=== PATIENT | female | born 1935 | race Caucasian/White ===

== ENCOUNTER 2021-08-16 09:34 | Emergency (ER) | payer MEDICARE, SELFPAY ==
--- NOTE | 2021-08-16 09:36 | ED.ABDPAIN ---
HPI - Abdominal Pain General Chief Complaint: Abdominal Pain Stated Complaint: abd pain Time Seen by Provider: 08/16/21 10:12 Source: patient Mode of arrival: ambulatory Limitations: no limitations History of Present Illness HPI narrative: 86-year-old female presents with concern for lower abdominal pain. She reports a history of diverticulitis. She reports pain is 5/10, steady in nature, eased with walking. She denies any exacerbating factors. She reports pain started after she ate popcorn Tuesday night. She denies vomiting, diarrhea, constipation. Reports 2 bowel movements this morning. She denies decreased appetite. She denies fever or body aches. She denies chest pain or back pain. She reports her personal care physician instructed her to come to urgent care before going to the emergency room. MD elicited complaint: abdominal pain Related Data Home Medications Medication Instructions Recorded Confirmed alprazolam 08/16/21 estradiol mg 08/16/21 Allergies Allergy/AdvReac Type Severity Reaction Status Date / Time amlodipine Allergy Severe Dizziness Verified 08/16/21 10:14 lisinopril Allergy Intermediate Cough Verified 08/16/21 10:14 rofecoxib Allergy Mild Other Verified 08/16/21 10:14 Review of Systems Review of Systems: CONSTITUTIONAL: Denies malaise, chills, sweats, or fever. EYES: Denies visual changes, redness, or discharge. ENT: Denies rhinorrhea, congestion, sinus pain, otalgia or sore throat. CARDIOVASCULAR: Denies chest pain, palpitations, or edema. RESPIRATORY: Denies cough or dyspnea. GASTROINTESTINAL: Reports lower abdominal pain. Denies nausea, vomiting, diarrhea, bloody, or mucous stools. GENITOURINARY: Denies dysuria, frequency, urgency or hematuria. SKIN: Denies rash or itching. MUSCULOSKELETAL: Denies back pain or myalgia. All systems reviewed & are unremarkable except as noted in HPI and below PMFSH Comments At time of signature, agree with nursing past medical, surgical, social and family history. There is no relevant family history pertinent to the presenting complaint Exam Narrative: GENERAL: Well-appearing, well-nourished, and in no acute distress. HEAD: Normocephalic, atraumatic. EYES: PERRLA, conjunctivae clear, and EOMI. ENT: Nares clear, turbinates pink, no rhinorrhea or epistaxis. Mucous membranes moist. Oropharynx without edema, erythema, or lesions. Tonsils not enlarged and without exudate. NECK: Supple. No lymphadenopathy CHEST: Speaks in full sentences. No respiratory distress. HEART: Regular rate and rhythm. ABDOMEN: Soft, flat, nondistended. Mild left lower quadrant tenderness. No guarding, rebound tenderness, or rigid. No pulsatilla masses. Bowel sounds present in all four quadrants. No organomegaly. Negative Fry?s sign. No periumbilical tenderness. No Supra public tenderness or distension. Good femoral pulses bilaterally. No hernia noted. No scars or surface trauma. SKIN: Warm, dry, no rash. NEURO: Alert and oriented x3. PSYCH: Normal mood and affect Course Course Emergency Course: Discussed with patient limited diagnostic capability express care for abdominal pain. Discussed options for transfer to emergency department for further evaluation of symptoms or definitive diagnosis versus presumptively treating for diverticulitis pending follow-up with patient's primary care doctor tomorrow. Patient prefers to presumptively treat for diverticulitis and understands reasons to go to the emergency room if symptoms worsen or do not improve. Patient is aware of diagnosis, understands and agrees to treatment plan. Anticipatory guidance given. Patient agrees to follow-up as directed and is aware of reasons to seek care at the emergency department. Portions of this record may have been created with voice recognition software Level of Care: Express Care Visit Vital Signs Vital signs: Reviewed. MDM - Abdominal Pain MDM Narrative Medical decision making narrative: No evidence of pancreatit
[2021-08-16 09:45] VITALS: BP 198/69; PULSE 77; RESP 16; TEMP 37.1; O2SAT 99
[2021-08-16 10:15] VITALS: BP 160/80
== END 2021-08-16 10:40 | disposition home or self-care (01) ==
PROVIDERS: Emergency Provider Nurse Practitioner
DX: R10.32 Left lower quadrant pain (principal); Z87.19 Personal history of other diseases of the digestive system; F41.9 Anxiety disorder, unspecified
CPT/HCPCS: 81003; 99213; G0463

== ENCOUNTER 2021-10-19 09:27 | Emergency (ER) | payer MEDICARE, SELFPAY ==
--- NOTE | 2021-10-19 09:39 | ED.EAR ---
HPI - Ear Problem General Chief complaint: Ear Stated complaint: Ear Pain Time Seen by Provider: 10/19/21 09:40 Source: patient, RN notes reviewed and old records reviewed Mode of arrival: ambulatory Limitations: no limitations History of Present Illness HPI Narrative: 86-year-old female presents to the [facility] with complaints of right ear discomfort. Patient reports has been going on a long time however the last 2 days it is increased. Has been using sweet oil for comfort. No other treatment prior to arrival. Patient is concerned is either her TMJ or has an ear infection. 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 MD Complaint: ear pain (right ) Related Data Home Medications Medication Instructions Recorded Confirmed alprazolam 0.5 mg PO DAILY 08/16/21 10/19/21 aspirin 81 mg PO DAILY 08/16/21 10/19/21 carboxymethylcellulose sodium 1 drp EACH EYE TID 08/16/21 10/19/21 cholecalciferol (vitamin D3) 25 mcg PO DAILY 08/16/21 10/19/21 [Vitamin D3] coenzyme Q10 200 mg PO DAILY 08/16/21 10/19/21 cranberry 400 mg PO DAILY 08/16/21 10/19/21 estradiol 0.5 mg PO DAILY 08/16/21 10/19/21 lutein 20 mg PO DAILY 08/16/21 10/19/21 magnesium 1 tablet PO DAILY 08/16/21 10/19/21 [id number]-epa-fish 1 tablet PO DAILY 08/16/21 10/19/21 [Adult Multi plus Popejoy-3] omeprazole 20 mg PO DAILY 08/16/21 10/19/21 sennosides 8.6 mg PO DAILY 08/16/21 10/19/21 triamterene-hydrochlorothiazid 1 cap PO DAILY 08/16/21 10/19/21 turmeric 400 mg PO DAILY 08/16/21 10/19/21 Allergies Allergy/AdvReac Type Severity Reaction Status Date / Time amlodipine Allergy Severe Dizziness Verified 10/19/21 09:40 lisinopril Allergy Intermediate Cough Verified 10/19/21 09:40 rofecoxib Allergy Mild Other Verified 10/19/21 09:40 Review of Systems Review of Systems: All systems reviewed & are unremarkable except as noted in HPI and below Constitutional: Constitutional: Reports no additional constitutional complaints, Denies chills and Denies fever(s) Eyes: Eyes: Reports no additional eye complaints ENT: Reports as per HPI, Denies change in voice, Denies dental pain, Denies vertigo, Denies dizziness and Denies throat swelling Comments: Ear pain, right Cardiovascular: Cardiovascular: Reports no additional cardiovascular complaints, Denies chest pain and Denies dyspnea Respiratory: Respiratory: Reports no additional respiratory complaints, Denies cough and Denies dyspnea Gastrointestinal: Gastrointestinal: Reports no additional gastrointestinal complaints, Denies abdominal pain, Denies nausea and Denies vomiting Musculoskeletal: Musculoskeletal: Reports no additional musculoskeletal complaints Integumentary/Breasts: Skin/Breast: Reports system reviewed and no additional complaints, except as docu Neurologic: Reports system reviewed and no additional complaints, except as documented, Denies vertigo and Denies dizziness Psychiatric: Psychiatric: Reports no additional psychiatric complaints Allergic/Immunologic: Allergic/Immunologic: Reports no additional allergic/immunologic complaints and Denies throat swelling PMFSH Comments At the time of my signature, I reviewed and agree with the nursing past medical, surgical, social, and family history. There is no relevant family history pertinent to the patient complaint. Exam Const: General: healthy appearing, no acute distress and alert Nutritional Appearance: well nourished Orientation/consciousness: patient oriented x3 Limitations: no limitations HENMT: Head: normal to inspection Ears: external ears normal, TM's normal bilaterally and EAC's normal General nose exam: Normal external nose present and Normal nasal mucous membranes and turbinates present Face and sinus: normal facial exam and face symmetric Mouth: Yes Normal oral and palatal mucosa present Throat: posterior oropharynx normal, tonsils normal and uvula midline Eyes: Conjunctivae: conjunctivae normal Pupils: E
[2021-10-19 09:43] VITALS: BP 146/72; PULSE 70; RESP 16; TEMP 36.9; O2SAT 98
[2021-10-19 09:45] VITALS: BP 146/72; PULSE 70; RESP 16; TEMP 36.9; O2SAT 98
== END 2021-10-19 09:55 | disposition home or self-care (01) ==
PROVIDERS: Emergency Provider Nurse Practitioner
DX: H92.01 Otalgia, right ear (principal); I10 Essential (primary) hypertension; K21.9 Gastro-esophageal reflux disease without esophagitis; F41.9 Anxiety disorder, unspecified
CPT/HCPCS: 99211; G0463

== ENCOUNTER 2022-09-06 23:09 | Emergency (ER) | payer MEDICARE, SELFPAY ==
[2022-09-06 23:13] VITALS: BP 176/67; PULSE 70; RESP 14; TEMP 36.2; O2SAT 97
[2022-09-07] VITALS (11 sets, daily range): BP systolic 163–208; BP diastolic 56–81; PULSE 58–75; RESP 11–21; O2SAT 98
--- NOTE | 2022-09-07 04:58 | ED.GENADULT ---
HPI - General Adult General Chief complaint: Recheck/Abnormal Lab/Rx Stated complaint: HTN Time Seen by Provider: 09/07/22 03:15 History of Present Illness HPI narrative: This is an 87-year-old female presenting ED with a chief complaint of high blood pressure. Patient noted that she had a headache earlier today. She then started taking her blood pressure medications in attempt to cure her headache. Patient has multiple hypertensive medications and has been given hydralazine to be taken p.r.n. if her blood pressure is ever above 180. Patient notes that after she takes hydralazine her blood pressure drops but then frequently climbs higher than before. The patient called her primary care physician who was unavailable so she was told to come to emergency room for evaluation. The patient has recently had her carvedilol switched to metoprolol. The patient feels that is not working as well. She has had blood pressure readings as high as into the 200s. During these regions she does not have chest pain, difficulty breathing, altered mental status or numbness tingling or weakness. She does have significant anxiety about her blood pressure. Patient is requesting that I change her blood pressure medication. Related Data Home Medications Medication Instructions Recorded Confirmed alprazolam 0.5 mg tablet 0.5 mg PO DAILY 08/16/21 10/19/21 aspirin 81 mg tablet,delayed 81 mg PO DAILY 08/16/21 10/19/21 release carboxymethylcellulose sodium 1 % 1 drp EACH EYE TID 08/16/21 10/19/21 eye drops cholecalciferol (vitamin D3) 25 25 mcg PO DAILY 08/16/21 10/19/21 mcg (1,000 unit) tablet (Vitamin D3) coenzyme Q10 200 mg capsule 200 mg PO DAILY 08/16/21 10/19/21 cranberry 400 mg capsule 400 mg PO DAILY 08/16/21 10/19/21 estradiol 0.5 mg tablet 0.5 mg PO DAILY 08/16/21 10/19/21 lutein 20 mg capsule 20 mg PO DAILY 08/16/21 10/19/21 magnesium 1 tablet PO DAILY 08/16/21 10/19/21 [id number]-[id number]-miy-epa-fish 1 tablet PO DAILY 08/16/21 10/19/21 oil 200 mcg-1,000 unit-25 mg tab,chew omeprazole 20 mg capsule,delayed 20 mg PO DAILY 08/16/21 10/19/21 release sennosides 8.6 mg capsule 8.6 mg PO DAILY 08/16/21 10/19/21 triamterene 37.5 1 cap PO DAILY 08/16/21 10/19/21 mg-hydrochlorothiazide 25 mg capsule turmeric 400 mg capsule 400 mg PO DAILY 08/16/21 10/19/21 Allergies Allergy/AdvReac Type Severity Reaction Status Date / Time amlodipine Allergy Severe Dizziness Verified 10/19/21 09:40 lisinopril Allergy Intermediate Cough Verified 10/19/21 09:40 rofecoxib Allergy Mild Other Verified 10/19/21 09:40 [facility] Past Medical History Medical History Anxiety Hypertension Social History Social History (Updated 09/07/22 @ 05:00 by Rambo Rhodes MD) Social History: Denies use of drugs alcohol or tobacco. Exam Narrative: APPEARANCE: No apparent distress. Head: atraumatic. EYES: EOMI, NOSE: Atraumatic NECK: Trachea midline RESPIRATORY: No increased rate of breathing, clear to auscultation bilaterally CARDIOVASCULAR: RRR, equal pulses in all extremities ABDOMINAL: Non-distended, soft no guarding or rebound MUSCULOSKELETAl: No obvious deformities NEURO: Alert. Cranial nerves 2-12 grossly intact. Sensation light touch, motor function cerebellar function intact for 4 extremities. Gait exam was normal. SKIN:: Warm, dry. Normal color PSYCHIATRIC: Normal affect Course Vital Signs Vital signs: Vital Signs Temperature 97.2 F L 09/06/22 23:13 Pulse Rate 70 09/06/22 23:13 Respiratory Rate 14 09/06/22 23:13 Blood Pressure 176/67 H 09/06/22 23:13 Pulse Oximetry 97 09/06/22 23:13 Oxygen Delivery Room Air 09/06/22 23:13 Temperature 97.2 F L 09/06/22 23:13 Pulse Rate 70 09/07/22 01:25 Respiratory Rate 18 09/07/22 01:25 Blood Pressure 177/63 H 09/07/22 01:25 Pulse Oximetry 98 09/07/22 01:25 Oxygen Delivery Room Air 09/06/22 23:13
== END 2022-09-07 05:23 | disposition home or self-care (01) ==
PROVIDERS: Emergency Provider Emergency Medicine
DX: I10 Essential (primary) hypertension (principal); F41.9 Anxiety disorder, unspecified; Z79.82 Long term (current) use of aspirin
CPT/HCPCS: 99281

== ENCOUNTER 2023-06-16 13:35 | Emergency (ER) | payer MEDICARE, SELFPAY ==
--- NOTE | ~2023-06-16 | XR_ITS ---
EXAMINATION: XR hip LT 2V w AP pelvis DATE: 06/16/2023 14:16 INDICATION: Left hip pain. TECHNIQUE: An anteroposterior view of the pelvis and 2 views of left hip were obtained. COMPARISON: None. 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 There is chronic height loss of L4 ve rtebral body. There are nondisplaced insufficiency fractures of left superior and inferior pubic rami . There is mild osteoarthritis of the hips. IMPRESSION: 1. Nondisplaced insufficiency fractures of left superior and inferior pubic rami. Reviewed, dictated and finalized at location A. [facility] SURGEON IMPRESSION: 1. Nondisplaced insufficiency fractures of left superior and inferior pubic gerri i.
[2023-06-16 13:46] VITALS: BP 144/118; PULSE 72; RESP 18; TEMP 36.6; O2SAT 96
[2023-06-16 14:02] VITALS: BP 131/54; PULSE 89
--- NOTE | 2023-06-16 14:07 | ED.LOWEXIN ---
HPI - Extremity Injury (Lower) General Chief Complaint: Extremity Injury, Lower Stated Complaint: Left Leg Pain Time Seen by Provider: 06/16/23 13:50 Source: patient Mode of arrival: ambulatory Limitations: no limitations History of Present Illness HPI Narrative: Isela is an 88-year-old female patient presenting to the clinic today with complaints of left hip and leg pain. She reports that as the symptoms have been going on for 3 weeks. States that she had a MRI of her lumbar spine 3 weeks ago and felt as though she may have strained her left hip when moving on the MRI table. MRI was completed on 05/25/23. Is having pain in the groin area radiating down her leg. Related Data Home Medications Medication Instructions Recorded Confirmed alprazolam 0.5 mg tablet 0.5 mg PO DAILY 08/16/21 10/19/21 carboxymethylcellulose sodium 1 % 1 drp EACH EYE TID 08/16/21 10/19/21 eye drops cholecalciferol (vitamin D3) 25 25 mcg PO DAILY 08/16/21 10/19/21 mcg (1,000 unit) tablet (Vitamin D3) [id number]-cjd-epa-fish 1 tablet PO DAILY 08/16/21 10/19/21 oil 200 mcg-1,000 unit-25 mg tab,chew Allergies Allergy/AdvReac Type Severity Reaction Status Date / Time amlodipine Allergy Severe Dizziness Verified 06/16/23 13:49 lisinopril Allergy Intermediate Cough Verified 06/16/23 13:49 rofecoxib Allergy Mild Other Verified 06/16/23 13:49 Review of Systems Review of Systems: Pertinent positives per HPI. Patient denies any fever, chills, rash, headache, visual changes, dizziness, cough, runny nose, sore throat, shortness of breath, chest pain, palpitations, nausea, vomiting, diarrhea, constipation, abdominal pain, or any urinary issues. [facility] Past Medical History Medical History Anxiety Hypertension Social History Social History Social History: Denies use of drugs alcohol or tobacco. Comments At the time of my signature, I reviewed and agree with the nursing past medical, surgical, social, and family history. There is no relevant family history pertinent to the patient complaint. Exam Narrative: General: Well-developed, well nourished, in no apparent distress Head: Normocephalic, atraumatic. Cardio: Regular rate and rhythm, s1 and s2 normal, no murmur appreciated. Resp: Clear to auscultation bilaterally, no rhonchi, rales, wheezing or rubs. Musculoskeletal: No deformity, tender to palpation over the left groin, no pain over the posterior hip or lateral hip, pain with flexion of the hip over the left groin, grossly normal range of motion, muscle strength strong and equal, peripheral pulse strong, no edema, no cyanosis, walking with a wheeled walker. Course Course Emergency Course: Portions of this record may have been created with voice recognition software. Level of Care: Express Care Visit Vital Signs Vital signs: Vital Signs Temperature 36.6 C 06/16/23 13:46 Pulse Rate 72 06/16/23 13:46 Respiratory Rate 18 06/16/23 13:46 Blood Pressure 144/118 H 06/16/23 13:46 Pulse Oximetry 96 06/16/23 13:46 Oxygen Delivery Room Air 06/16/23 13:46 Temperature 36.6 C 06/16/23 13:46 Pulse Rate 89 06/16/23 14:02 Respiratory Rate 18 06/16/23 13:46 Blood Pressure 131/54 L 06/16/23 14:02 Pulse Oximetry 96 06/16/23 13:46 Oxygen Delivery Room Air 06/16/23 13:46 Vital signs reviewed MDM - Extremity Injury (Lower) MDM Narrative Medical decision making narrative: At the time of visit patient is resting comfortably on the exam table. X-ray of the left hip and pelvis was performed. X-ray shows a nondisplaced insufficiency fractures of left superior and inferior pubic rami. Differential Diagnosis Differential diagnosis: Likely other (Left hip fracture, left groin strain, left hip bursitis, acute left hip pain) Imaging Data Radiologist's impression: ITS
== END 2023-06-16 14:38 | disposition home or self-care (01) ==
PROVIDERS: Emergency Provider Nurse Practitioner Family
DX: S32.512A Fracture of superior rim of left pubis, initial encounter for closed fracture (principal); S32.592A Other specified fracture of left pubis, initial encounter for closed fracture; I10 Essential (primary) hypertension; X58.XXXA Exposure to other specified factors, initial encounter
CPT/HCPCS: 73502; 99213; G0463

== ENCOUNTER 2023-07-03 13:50 | Emergency (ER) | payer MEDICARE, SELFPAY ==
--- NOTE | 2023-07-03 14:00 | ED.FEMALEGU ---
HPI - Female Genitourinary General Chief complaint: Urogenital-Female Stated complaint: vaginal issue Time Seen by Provider: 07/03/23 13:58 Source: patient Mode of arrival: ambulatory Limitations: no limitations History of Present Illness HPI Narrative: Isela is a 88-year-old female patient presenting to the clinic today with complaints of vaginal itching and irritation. She reports that this has been going on for the past few days. No recent antibiotic use and she denies being diabetic however she has been doing a lot of sitting because she has a pelvic fracture. Denies any urinary symptoms, vaginal discharge, or foul odor of the vagina Related Data Home Medications Medication Instructions Recorded Confirmed alprazolam 0.5 mg tablet 0.5 mg PO DAILY 08/16/21 10/19/21 carboxymethylcellulose sodium 1 % 1 drp EACH EYE TID 08/16/21 10/19/21 eye drops cholecalciferol (vitamin D3) 25 25 mcg PO DAILY 08/16/21 10/19/21 mcg (1,000 unit) tablet (Vitamin D3) [id number]-JM-[id number]-zzn-epa-fish 1 tablet PO DAILY 08/16/21 10/19/21 oil 200 mcg-1,000 unit-25 mg tab,chew Allergies Allergy/AdvReac Type Severity Reaction Status Date / Time amlodipine Allergy Severe Dizziness Verified 06/16/23 13:49 lisinopril Allergy Intermediate Cough Verified 06/16/23 13:49 rofecoxib Allergy Mild Other Verified 06/16/23 13:49 Review of Systems Review of Systems: Pertinent positives per HPI. Patient denies any fever, chills, rash, headache, visual changes, dizziness, cough, runny nose, sore throat, shortness of breath, chest pain, palpitations, nausea, vomiting, diarrhea, constipation, abdominal pain, or any urinary issues. [facility] Past Medical History Medical History Anxiety Hypertension Social History Social History Social History: Denies use of drugs alcohol or tobacco. Comments At the time of my signature, I reviewed and agree with the nursing past medical, surgical, social, and family history. There is no relevant family history pertinent to the patient complaint. Exam Narrative: General: Well-developed, well nourished, in no apparent distress. Head: Normocephalic, atraumatic. Cardio: Regular rate and rhythm, s1 and s2 normal, no murmur appreciated. Resp: Clear to auscultation bilaterally, no rhonchi, rales, wheezing or rubs. Abdomen: Soft, pliable, bowel sounds present in all quadrants, non-tender to palpation, no organomegly, no CVAT tenderness. : Deferred Course Course Emergency Course: Portions of this record may have been created with voice recognition software. Level of Care: Express Care Visit Vital Signs Vital signs: Vital Signs Temperature 36.3 C L 07/03/23 14:16 Pulse Rate 50 L 07/03/23 14:16 Respiratory Rate 14 07/03/23 14:16 Blood Pressure 151/57 H 07/03/23 14:16 Pulse Oximetry 100 07/03/23 14:16 Oxygen Delivery Room Air 07/03/23 14:16 Temperature 36.3 C L 07/03/23 14:16 Pulse Rate 50 L 07/03/23 14:16 Respiratory Rate 14 07/03/23 14:16 Blood Pressure 151/57 H 07/03/23 14:16 Pulse Oximetry 100 07/03/23 14:16 Oxygen Delivery Room Air 07/03/23 14:16 Vital signs reviewed MDM - Female Genitourinary MDM Narrative Medical decision making narrative: At the time of visit patient is resting comfortably on the exam table. Patient appears to be nontoxic. UA was performed and was negative for any sign of infection or blood. I suspect patient may have a vaginal yeast infection. Prescription for Diflucan was sent to the pharmacy. Supportive measures were discussed with the patient and they voiced understanding discharge instructions and agrees to treatment plan. Return precautions reviewed Differential Diagnosis Differential diagnosis: Likely urinary tract infection, bacterial vaginosis, vaginitis, cystitis and other (Vaginal yeast infect
[2023-07-03 14:16] VITALS: BP 151/57; PULSE 50; RESP 14; TEMP 36.3; O2SAT 100
== END 2023-07-03 14:50 | disposition home or self-care (01) ==
PROVIDERS: Emergency Provider Nurse Practitioner Family
DX: B37.31 Acute candidiasis of vulva and vagina (principal); I10 Essential (primary) hypertension; F41.9 Anxiety disorder, unspecified
CPT/HCPCS: 81003; 99213; G0463

== ENCOUNTER 2023-09-07 13:49 | Emergency (ER) | payer MEDICARE, SELFPAY ==
--- NOTE | ~2023-09-07 | XR_ITS ---
EXAMINATION: XR pelvis 1-2V INDICATION: History of pelvic fracture TECHNIQUE: AP view the pelvis is obtained. COMPARISON: 06/16/2023 FINDINGS: There are nondisplaced, healing insufficiency fractures of the left superior and inferior p ubic rami. No new fracture is identified. The femoral heads are well-seated in their acetabula. There is severe lower lumbar spondylosis. IMPRESSION: 1. Nondisplaced healing insufficiency fractures of the left superior and inferior pubic rami. Reviewed, dictated and finalized at location B. CLE REPAIRMAN IMPRESSION: 1. Nondisplaced healing insufficiency fractures of the left superior and inferi or pubic rami.
[2023-09-07 14:12] VITALS: BP 132/54; PULSE 60; RESP 20; TEMP 36.4; O2SAT 97
--- NOTE | 2023-09-07 14:14 | ED.LOWEXIN ---
HPI - Extremity Injury (Lower) General Chief Complaint: Extremity Problem,Nontraumatic Stated Complaint: Lower Body Concern Time Seen by Provider: 09/07/23 14:14 Source: patient Mode of arrival: ambulatory Limitations: no limitations History of Present Illness HPI Narrative: 88-year-old female presents stating she would like a repeat x-ray of her pelvis to see if fractures are healing. Patient states that she had x-ray completed here June 13 that showed stress fractures to pelvis. Since then has been having her son drive her around due to pain. Patient states that her son is going out of town for the next 3 weeks and wants to see if she can start driving herself. Wants to see if fractures are healing . Patient was given follow-up with system specialist at last visit here but states she did not follow-up. States that her son is a distilling department supervisor and told her that nothing could be done for the types of fractures that she had and that she did not need follow-up. Patient has also not seen her primary care physician for pelvic fractures. Patient ambulatory with walker. All systems reviewed and negative except as noted above. Related Data Home Medications Medication Instructions Recorded Confirmed alprazolam 0.5 mg tablet 0.5 mg PO DAILY 08/16/21 09/07/23 carboxymethylcellulose sodium 1 % 1 drp EACH EYE TID 08/16/21 09/07/23 eye drops cholecalciferol (vitamin D3) 25 25 mcg PO DAILY 08/16/21 09/07/23 mcg (1,000 unit) tablet (Vitamin D3) [id number]-EH-[id number]-uyc-epa-fish 1 tablet PO DAILY 08/16/21 09/07/23 oil 200 mcg-1,000 unit-25 mg tab,chew Allergies Allergy/AdvReac Type Severity Reaction Status Date / Time amlodipine Allergy Severe Dizziness Verified 09/07/23 14:01 lisinopril Allergy Intermediate Cough Verified 09/07/23 14:01 rofecoxib Allergy Mild Other Verified 09/07/23 14:01 Review of Systems Review of Systems: CONSTITUTIONAL: Denies fever, chills, or sweats. EYES: Denies visual changes, redness, or discharge. ENT: Denies rhinorrhea, congestion, sore throat, or otalgia. CARDIOVASCULAR: Denies chest pain, palpitations, or edema. RESPIRATORY: Denies cough or dyspnea. GASTROINTESTINAL: Denies abdominal pain, nausea, vomiting, or diarrhea. GENITOURINARY: Denies dysuria or hematuria. SKIN: Denies rash or itching. MUSCULOSKELETAL: Denies back pain, joint pain, or myalgia. NEUROLOGIC: Denies headache, numbness, or weakness. PSYCHIATRIC: Denies anxiety or depression. All other systems reviewed are negative, except as documented in HPI. PMFSH Past Medical History Medical History Anxiety Hypertension Social History Social History Social History: Denies use of drugs alcohol or tobacco. Comments At time of signature, agree with nursing past medical, surgical, social and family history. There is no relevant family history pertinent to the presenting complaint. Exam Narrative: GENERAL: This is a well-nourished, well-developed patient, in no apparent distress. HEAD: normocephalic, atraumatic. EYES: PERRL. Sclera clear/white. Vision is grossly intact. EARS: External ears normal NOSE: External nose normal . NECK: Neck supple, non-tender without lymphadenopathy, masses or thyromegaly. CARDIOVASCULAR: Regular rate and rhythm without murmurs, gallops, or rubs. RESPIRATORY: Clear to auscultation. Breath sounds equal bilaterally. No wheezes, rales, or rhonchi. SKIN: warm, Dry, intact with no suspicious lesions or rash, good texture and turgor. NEURO: awake, alert, and oriented to person, place and time. There were no obvious focal neurologic abnormalities. EXTREMITIES: No joint tenderness, effusion, or edema noted. Course Course Level of Care: Express Care Visit Vital Signs Vital signs: Vital Signs Temperature 36.4 C L 09/07/23 14:12 Pulse Rate 60
== END 2023-09-07 15:15 | disposition home or self-care (01) ==
PROVIDERS: Emergency Provider Nurse Practitioner Family
DX: S32.512D Fracture of superior rim of left pubis, subsequent encounter for fracture with routine healing (principal); S32.592D Other specified fracture of left pubis, subsequent encounter for fracture with routine healing; X58.XXXD Exposure to other specified factors, subsequent encounter; F41.9 Anxiety disorder, unspecified; I10 Essential (primary) hypertension
CPT/HCPCS: 72170; 99213; G0463

== ENCOUNTER 2023-09-25 11:52 | Emergency (ER) | payer MEDICARE, SELFPAY ==
[2023-09-25 12:09] VITALS: BP 134/72; PULSE 67; RESP 16; TEMP 37.4; O2SAT 98
[2023-09-25 12:30] LABS: Glucose Point of Care 109 mg/dl (65-105)
--- NOTE | 2023-09-25 13:17 | ED.GENADULT ---
HPI - General Adult General Chief complaint: Urogenital-Female Stated complaint: yeast infection Source: patient Mode of arrival: ambulatory Limitations: no limitations History of Present Illness HPI narrative: Patient presents for evaluation of which she believes to be a yeast infection. She indicates over the course of the last month she has had brown vaginal discharge and intermittent pelvic pain. She indicates she saw her OBGYN who obtained a vaginal swab and told her that she had vaginal candidiasis. She was treated with oral Diflucan and it sounds like that dose was repeated 72 hours later. She continued to have symptoms and states that the nurse practitioner and her OBGYNs office repeated the treatment of Diflucan with another dose 72 hours later. her symptoms remain unchanged. She denies any urinary symptoms other than some vaginal irritation. She states that that is chronic. She was advised by women's health provider about 10 years ago to apply Crisco to her labia. She has done this for many years. She denies any fever, chills, nausea, or vomiting. She has some chronic low back pain and states that pain management administered a steroid injection for her symptoms. Surgical history positive for total hysterectomy per her reports. Related Data Home Medications Medication Instructions Recorded Confirmed alprazolam 0.5 mg tablet 0.5 mg PO DAILY 08/16/21 09/25/23 carboxymethylcellulose sodium 1 % 1 drp EACH EYE TID 08/16/21 09/25/23 eye drops cholecalciferol (vitamin D3) 25 25 mcg PO DAILY 08/16/21 09/25/23 mcg (1,000 unit) tablet (Vitamin D3) [id number]-epa-fish 1 tablet PO DAILY 08/16/21 09/25/23 oil 200 mcg-1,000 unit-25 mg tab,chew Allergies Allergy/AdvReac Type Severity Reaction Status Date / Time amlodipine Allergy Severe Dizziness Verified 09/25/23 11:55 lisinopril Allergy Intermediate Cough Verified 09/25/23 11:55 rofecoxib Allergy Mild Other Verified 09/25/23 11:55 Review of Systems Review of Systems: CONSTITUTIONAL: Denies fever, chills, or sweats. EYES: Denies visual changes, redness, or discharge. ENT: Denies rhinorrhea, congestion, sore throat, or otalgia. CARDIOVASCULAR: Denies chest pain, palpitations, or edema. RESPIRATORY: Denies cough or dyspnea. GASTROINTESTINAL: Denies abdominal pain, nausea, vomiting, or diarrhea. GENITOURINARY: Reports brown vaginal discharge and vaginal irritation. Reports pelvic pain. Denies other urinary symptoms. Denies vaginal bleeding. SKIN: Denies rash or itching. MUSCULOSKELETAL: Denies back pain, joint pain, or myalgia. NEUROLOGIC: Denies headache, numbness, dizziness, or weakness. PSYCHIATRIC: Denies anxiety or depression. [facility] Past Medical History Medical History Anxiety GERD (gastroesophageal reflux disease) Hypertension Surgical History Surgical History History of hysterectomy History of shoulder surgery Family History Family History Mother Family history non-contributory Social History Social History Social History: Denies use of drugs alcohol or tobacco. Substance use: never Gender identity (if verbalized by the patient): Female Spiritual care concerns: No Exam Narrative: GENERAL: Well-appearing, well-nourished, and in no acute distress. HEAD: Normocephalic, atraumatic. EYES: PERRLA and EOMI. ENT: Nares clear, no rhinorrhea or epistaxis. Mucous membranes moist. Oropharynx without tonsillar hypertrophy exudate or other lesions. Bilateral TMs pearly valencia nonbulging NECK: Supple. No adenopathy or masses. No carotid bruits or JVD CHEST: Clear to auscultation. No respiratory distress. No wheezes rales or rhonchi HEART: Regular rate and rhythm. No murm
== END 2023-09-25 13:15 | disposition short-term general hospital (02) ==
PROVIDERS: Emergency Provider Nurse Practitioner
DX: N89.8 Other specified noninflammatory disorders of vagina (principal); R10.2 Pelvic and perineal pain; R73.9 Hyperglycemia, unspecified; I10 Essential (primary) hypertension; K21.9 Gastro-esophageal reflux disease without esophagitis; F41.9 Anxiety disorder, unspecified
CPT/HCPCS: 82948; 99212; G0463

== ENCOUNTER 2023-09-25 13:38 | Emergency (ER) | payer MEDICARE, SELFPAY ==
--- NOTE | ~2023-09-25 | CT_ITS ---
EXAMINATION: CT abdomen pelvis w con DATE: 09/25/2023 15:24 INDICATION: Pelvic pain TECHNIQUE: Computed tomography (CT) of the abdomen and pelvis was performed with 100 mL Omnipaque-350 intravenous contrast. Automated exposure control and iterative reconstruction technique were employe d. The dose-length product was 647.81 mGy-cm. COMPARISON: X-ray pelvis 09/07/2023. FINDINGS: Lower thorax: Unremarkable Liver: Normal. Biliary/Gallbladder: Gallbladder is normal. No bile duct dilation. Pancreas: No mass or duct dilation. Moderate atrophy. Spleen: Normal. Adrenals:No mass. Kidneys: No suspicious mass, obstructing stone, or hydronephrosis. GI tract: Small hiatal hernia. Mild distal esophageal and gastric wall edema as can be seen with mild esophagitis/gastritis. No small or large bowel dilation. Normal appendix. Scattered diverticuli. Celi rt segment wall thickening and surrounding inflammatory change in the distal sigmoid colon as it pass es through the deep pelvis. Mesentery/Peritoneum: No ascites, mass, or free air. Retroperitoneum: No mass. Atherosclerotic abdominal aortic and/or arterial calcifications. Pelvis: 2.9 x 1.8 cm rim-enhancing fluid and gas collection in the deep pelvis with loss of fat plane s between the adjacent sigmoid and vaginal cuff. Gas in the vaginal cuff. Normal urinary bladder. Soft Tissues: Soft tissues and body wall unremarkable. Bones: No acute osseous finding. Vertebroplasty cement at L1. Stable moderate height loss at L4. 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 Reviewed, dictated and finalized at location K. IMPRESSION: Acute distal sigmoid diverticulitis, complicated by fistula formation between t he sigmoid and vaginal cuff.
[2023-09-25 13:44] VITALS: BP 195/75; PULSE 69; RESP 18; TEMP 36.4; O2SAT 99
--- NOTE | 2023-09-25 14:17 | ED.FEMALEGU ---
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 Patient was seen at urgent care today who referred her to our emergency room. Patient denies any fever, chills, nausea, vomiting, diarrhea or constipation. History of hypertension and anxiety. Related Data Home Medications Medication Instructions Recorded Confirmed alprazolam 0.5 mg tablet 0.5 mg PO DAILY 08/16/21 09/25/23 carboxymethylcellulose sodium 1 % 1 drp EACH EYE TID 08/16/21 09/25/23 eye drops cholecalciferol (vitamin D3) 25 25 mcg PO DAILY 08/16/21 09/25/23 mcg (1,000 unit) tablet (Vitamin D3) [id number]-epa-fish 1 tablet PO DAILY 08/16/21 09/25/23 oil 200 mcg-1,000 unit-25 mg tab,chew Allergies Allergy/AdvReac Type Severity Reaction Status Date / Time amlodipine Allergy Severe Dizziness Verified 09/25/23 11:55 lisinopril Allergy Intermediate Cough Verified 09/25/23 11:55 rofecoxib Allergy Mild Other Verified 09/25/23 11:55 Review of Systems Review of Systems: All systems reviewed & are unremarkable except as noted in HPI and below PMFSH Past Medical History Medical History Anxiety GERD (gastroesophageal reflux disease) Hypertension Surgical History Surgical History History of hysterectomy History of shoulder surgery Family History Family History Mother Family history non-contributory Social History Social History Social History: Denies use of drugs alcohol or tobacco. Substance use: never Gender identity (if verbalized by the patient): Female Spiritual care concerns: No Exam Narrative: General appearance: Well-developed, well-nourished Skin: Normal color Head: Normocephalic, nontraumatic Eyes: Clear conjunctiva Neck: Supple, nontender Chest and respiratory: Airway patent, no respiratory distress, no accessory muscle use Heart: Regular rate/rhythm Abdomen: Soft, mild suprapubic tenderness no organomegaly, quiet bowel sounds Musculoskeletal: Normal range of motion, nontender back Neurologic: Alert and oriented ?3, COMMODITY INDUSTRY ANALYST is normal as tested, no gross motor deficit Course Consultations Consultation #1: Dr. Grubbs, ED of [facility] Date: 09/25/23 Time: 17:17 Vital Signs Vital signs: Vital Signs Temperature 36.4 C 09/25/23 13:44 Pulse Rate 69 09/25/23 13:44 Respiratory Rate 18 09/25/23 13:44 Blood Pressure 195/75 H 09/25/23 13:44 Pulse Oximetry 99 09/25/23 13:44 Oxygen Delivery Room Air 09/25/23 13:44 Temperature 36.4 C 09/25/23 13:44 Pulse Rate 69 09/25/23 13:44 Respiratory Rate 18 09/25/23 13:44 Blood Pressure 195/75 H 09/25/23 13:44 Pulse Oximetry 99 09/25/23 13:44 Oxygen Delivery Room Air 09/25/23 13:44 MDM - Female Genitourinary MDM Narrative Medical decision making narrative: Patient presents with lower abdominal pain and brownish vaginal discharge Differential diagnosis urinary tract infectio
[2023-09-25] MEDS: SODIUM CHLORIDE 0.9% IV 1,000 ML 999 ML IV CONT (14:32)
[2023-09-25 14:41] LABS: Basophils Percent Auto 0.3 % (0.2-1.2); Eosinophils Absolute Auto 0.2 K/mm3 (0-0.3); Eosinophils Percent Auto 1.2 % (0-4.4); Hematocrit 40.6 % (37.0-47.0); Hemoglobin 13.1 g/dL (12.0-15.0); Immature Granulocyte Absolute 0.08 K/mm3 (0.00-0.031); Immature Granulocyte Percent A 0.6 % (0-0.5); Lymphocytes Percent Auto 11.2 % (18.3-44.2); Mean Corpuscular HGB Conc 32.3 g/dl (32-36); Mean Corpuscular Hemoglobin 29.5 pg (26-34); Mean Corpuscular Volume 91.4 fl (80-100); Mean Platelet Volume 9.9 fl (7.4-10.4); Monocytes Absolute Auto 1.5 K/mm3 (0.1-0.6); Monocytes Percent Auto 11.5 % (2.6-8.5); Neutrophils Absolute Auto 10.1 K/mm3 (1.3-6.7); Neutrophils Percent Auto 75.2 % (45.5-73.1); Platelet Count Result 370 k/mm3 (150-375); Red Blood Count 4.44 M/mm3 (4.2-5.4); Red Cell Distribution Width 13.8 % (11.5-14.5); White Blood Count 13.4 K/mm3 (4.5-10.0)
[2023-09-25 14:44] LABS: Color Urine Yellow (Yellow)
[2023-09-25 14:45] LABS: Add Urine Microscopic? YES; Appearance Urine Cloudy (Clear); Bilirubin Urine Negative (Negative); Blood Urine Trace-intact (Negative); Glucose Urine UA Negative (Negative); Ketones Urine Negative (Negative); Leukocyte Esterase Ur 3+ LEU/UL (Negative); Nitrate Urine Negative (Negative); Protein Urine Trace mg/dL (Negative); Specific Grav Ur 1.025 (1.001-1.035); Urobilinogen Urine 0.2 mg/dL (<2.0)
[2023-09-25 14:49] LABS: Bacteria Urine 2+ /hpf; Need Manual Microscopic Reviewed; RBC Urine 51-100 /hpf (0-2); Squamous Epithelial Cell Urine Occasional /hpf (Few); WBC Urine >100 /hpf (0-3)
[2023-09-25 14:51] LABS: Alanine Aminotransferase 23 U/L (6-35); Albumin Level 4.3 g/dL (3.5-5.1); Alkaline Phosphatase 162 U/L (38-126); Anion Gap 3 mmol/L (8-16); Aspartate Amino Transferase 25 U/L (14-36); Bilirubin,Total 0.4 mg/dL (0.2-1.3); Blood Urea Nitrogen 17 mg/dL (7-17); Calcium 11.2 mg/dL (8.4-10.2); Carbon Dioxide 30 mmol/L (22-30); Chloride 98 mmol/L (98-107); Estimated CRCL calculation 47 ml/min; Estimated Glomerular Filt Rate > 60; Glucose 115 mg/dL (65-110); INR 0.9; Lipase 85 U/L (23-300); Potassium 4.4 mmol/L (3.4-5.0); Prothrombin Time 12.8 Seconds (11.1-14.7); Sodium 131 mmol/L (137-145)
[2023-09-25] MEDS: levoFLOXacin 750 MG/D5W 150 ML 750 MG/150 ML BAG 100 MG IVPB (17:03)
[2023-09-25 18:03] VITALS: BP 165/73; PULSE 82; RESP 19; O2SAT 99
[2023-09-25 18:20] VITALS: BP 167/73; PULSE 77; RESP 19; O2SAT 99
== END 2023-09-25 18:22 | disposition short-term general hospital (02) ==
PROVIDERS: Emergency Provider Emergency Medicine
DX: K57.20 Diverticulitis of large intestine with perforation and abscess without bleeding (principal); N82.3 Fistula of vagina to large intestine; I10 Essential (primary) hypertension; K21.9 Gastro-esophageal reflux disease without esophagitis; F41.9 Anxiety disorder, unspecified; Z90.710 Acquired absence of both cervix and uterus
CPT/HCPCS: 36415; 74177; 80053; 81001; 82948; 83690; 85025; 85610; 87086; 87088; 96361; 96365; 96367; 99212; 99285; G0463; J0696; J1956; J7030; Q9967

== ENCOUNTER 2023-10-06 11:26 | Emergency (ER) | payer MEDICARE, SELFPAY ==
--- NOTE | 2023-10-06 11:30 | ED.FEMALEGU ---
HPI - Female Genitourinary General Chief complaint: Urogenital-Female Stated complaint: UTI Time Seen by Provider: 10/06/23 11:57 Source: patient, RN notes reviewed and old records reviewed Mode of arrival: ambulatory Limitations: no limitations History of Present Illness HPI Narrative: 88-year-old female presents to the [facility] with concerns for UTI. Reports burning with urination. Recently diagnosed with an abscessed diverticulitis into the vaginal vault. Patient reports that she seen her doctor yesterday. Reports having surgery scheduled for next week at [facility] Related Data Home Medications Medication Instructions Recorded Confirmed alprazolam 0.5 mg tablet 0.5 mg PO DAILY 08/16/21 10/06/23 carboxymethylcellulose sodium 1 % 1 drp EACH EYE TID 08/16/21 10/06/23 eye drops cholecalciferol (vitamin D3) 25 25 mcg PO DAILY 08/16/21 10/06/23 mcg (1,000 unit) tablet (Vitamin D3) [id number]-SN-[id number]-lwm-epa-fish 1 tablet PO DAILY 08/16/21 10/06/23 oil 200 mcg-1,000 unit-25 mg tab,chew amlodipine 10 mg tablet 10 mg PO DAILY 10/06/23 10/06/23 estradiol 0.5 mg tablet 0.5 mg PO DAILY 10/06/23 10/06/23 losartan 100 mg tablet 100 mg PO DAILY 10/06/23 10/06/23 metoprolol tartrate 25 mg tablet 25 mg PO DAILY 10/06/23 10/06/23 omeprazole 20 mg capsule,delayed mg 10/06/23 release Allergies Allergy/AdvReac Type Severity Reaction Status Date / Time amlodipine Allergy Severe Dizziness Verified 10/06/23 11:33 lisinopril Allergy Intermediate Cough Verified 10/06/23 11:33 rofecoxib Allergy Mild Other Verified 10/06/23 11:33 Review of Systems Review of Systems: All systems reviewed & are unremarkable except as noted in HPI and below Constitutional: Constitutional: Reports no additional constitutional complaints Eyes: Eyes: Reports no additional eye complaints ENT: Reports system reviewed and no additional complaints, except as documented Cardiovascular: Cardiovascular: Reports no additional cardiovascular complaints, Denies chest pain and Denies dyspnea Respiratory: Respiratory: Reports no additional respiratory complaints, Denies chest congestion, Denies cough and Denies dyspnea Gastrointestinal: Gastrointestinal: Reports no additional gastrointestinal complaints, Denies abdominal pain, Denies nausea and Denies vomiting Genitourinary: Genitourinary: Reports as per HPI and Reports dysuria Musculoskeletal: Musculoskeletal: Reports no additional musculoskeletal complaints Integumentary/Breasts: Skin/Breast: Reports system reviewed and no additional complaints, except as docu Neurologic: Reports system reviewed and no additional complaints, except as documented Psychiatric: Psychiatric: Reports no additional psychiatric complaints Allergic/Immunologic: Allergic/Immunologic: Reports no additional allergic/immunologic complaints PMFSH Past Medical History Medical History Anxiety GERD (gastroesophageal reflux disease) Hypertension Surgical History Surgical History History of hysterectomy History of shoulder surgery Family History Family History Mother Family history non-contributory Social History Social History Social History: Denies use of drugs alcohol or tobacco. Substance use: never Gender identity (if verbalized by the patient): Female Spiritual care concerns: No Comments At the time of my signature, I reviewed and agree with the nursing past medical, surgical, social, and family history. There is no relevant family history pertinent to the patient complaint. Exam Const: General: cooperative, healthy appearing, comfortable, no acute distress, well developed, alert and well nourished Nutritional Appearance: well nourished Orientation/consciousness: bay
[2023-10-06 11:56] VITALS: BP 155/52; PULSE 57; RESP 18; TEMP 36.5; O2SAT 98
== END 2023-10-06 12:15 | disposition home or self-care (01) ==
PROVIDERS: Emergency Provider Nurse Practitioner
DX: N30.01 Acute cystitis with hematuria (principal); K21.9 Gastro-esophageal reflux disease without esophagitis; I10 Essential (primary) hypertension; F41.9 Anxiety disorder, unspecified
CPT/HCPCS: 81003; 87086; 99213; G0463

== ENCOUNTER 2023-10-15 14:20 | Emergency (ER) | payer MEDICARE, SELFPAY ==
[2023-10-15 14:40] VITALS: BP 148/59; PULSE 60; RESP 16; TEMP 36.6; O2SAT 100
--- NOTE | 2023-10-15 15:24 | ED.FEMALEGU ---
HPI - Female Genitourinary General Chief complaint: Urogenital-Female Stated complaint: UTI Time Seen by Provider: 10/15/23 15:18 Source: patient, RN notes reviewed and old records reviewed Mode of arrival: ambulatory Limitations: no limitations History of Present Illness HPI Narrative: 88 year old female who presents to [facility] with complaints of burning with urination and urinary frequency since yesterday. Patient reports that she was treated on the for urinary tract symptoms also with Augmentin for 5 days. Patient was recently diagnosed with a diverticulitis that perforated the vaginal wall and did she doctor at [facility] on October 13, 2023, Dr Spangler. 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 Patient denies any fevers chills or sweats or any body aches. Patient reports that urine is cloudy and odorous. 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) Onset (ago): day(s) (day 2 of symptoms.) Location of symptoms: perineum and urethra Severity: mild Quality of pain: burning Urinary symptoms: Dysuria, Frequency and Foul Smelling Urine Related Data Home Medications Medication Instructions Recorded Confirmed alprazolam 0.5 mg tablet 0.5 mg PO DAILY 08/16/21 10/15/23 carboxymethylcellulose sodium 1 % 1 drp EACH EYE TID 08/16/21 10/15/23 eye drops cholecalciferol (vitamin D3) 25 25 mcg PO DAILY 08/16/21 10/15/23 mcg (1,000 unit) tablet (Vitamin D3) [id number]-[id number]-jtc-epa-fish 1 tablet PO DAILY 08/16/21 10/15/23 oil 200 mcg-1,000 unit-25 mg tab,chew amlodipine 10 mg tablet 10 mg PO DAILY 10/06/23 10/06/23 estradiol 0.5 mg tablet 0.5 mg PO DAILY 10/06/23 10/15/23 losartan 100 mg tablet 100 mg PO DAILY 10/06/23 10/15/23 metoprolol tartrate 25 mg tablet 25 mg PO DAILY 10/06/23 10/15/23 omeprazole 20 mg capsule,delayed 20 mg PO DAILY 10/06/23 10/15/23 release Allergies Allergy/AdvReac Type Severity Reaction Status Date / Time amlodipine Allergy Severe Dizziness Verified 10/15/23 14:28 lisinopril Allergy Intermediate Cough Verified 10/15/23 14:28 rofecoxib Allergy Mild Other Verified 10/15/23 14:28 Review of Systems Review of Systems: CONSTITUTIONAL: Denies fever, chills, or sweats. CARDIOVASCULAR: Denies chest pain, palpitations, or edema. RESPIRATORY: Denies cough or dyspnea. GASTROINTESTINAL: Denies abdominal pain, nausea, vomiting, or diarrhea. GENITOURINARY: Reports dysuria, frequency, urgency. Denies flank pain or hematuria.cloudy urine with odor SKIN: Denies rash or itching. MUSCULOSKELETAL: Denies back pain or myalgia. Denies CVA tenderness NEUROLOGIC: Denies headache All systems reviewed & are unremarkable except as noted in HPI and below PMFSH Past Medical History Medical History (Updated 10/16/23 @ 14:39 by Gloria Tierney NP) Anxiety GERD (gastroesophageal reflux disease) Hypertension Surgical History Surgical History (Updated 10/16/23 @ 14:33 by Gloria Tierney NP) History of appendectomy History of hysterectomy History of shoulder surgery bilateral Hx of cataract surgery bilateral Family History Family History Mother Family history non-contributory Social History Social History Social History: Denies use of drugs alcohol or tobacco. Substance use: never Gender identity (if verbalized by the patient): Female Spiritual care concerns: No Comments At time of signature, agree with nursing past medical, surgical, social and family history. There is no relevant family history pertinent to the presenting complaint Exam Narrative: GENERAL: Well-appearing, well-nourished, and in no acute distress. HEAD: Normocephalic, atraumatic. NECK: Supple. no lymphadenopathy CHEST: Clear to auscultation. No
== END 2023-10-15 15:55 | disposition home or self-care (01) ==
PROVIDERS: Emergency Provider Registered Nurse
DX: N39.0 Urinary tract infection, site not specified (principal); K21.9 Gastro-esophageal reflux disease without esophagitis; I10 Essential (primary) hypertension; F41.9 Anxiety disorder, unspecified
CPT/HCPCS: 81003; 87086; 87088; 99213; G0463

== ENCOUNTER 2023-10-25 14:08 | Emergency (ER) | payer MEDICARE, SELFPAY ==
--- NOTE | 2023-10-25 14:15 | ED.FEMALEGU ---
HPI - Female Genitourinary General Chief complaint: Urogenital-Female Stated complaint: UTI Time Seen by Provider: 10/25/23 14:40 Source: patient Mode of arrival: ambulatory Limitations: no limitations History of Present Illness HPI Narrative: Isela is an 88-year-old female patient presenting to the clinic today with complaints of burning, frequency, and urgency with urination. Was seen twice here this month for similar symptoms. Was seen on the 4th the and both urine cultures were negative for any bacterial growth at that time. She had been placed on Augmentin and Cipro and has finished both these medications. Reports that yesterday she started developed UTI symptoms again. Has history of a rectal fistula draining into the vagina. Related Data Home Medications Medication Instructions Recorded Confirmed alprazolam 0.5 mg tablet 0.5 mg PO DAILY 08/16/21 10/25/23 carboxymethylcellulose sodium 1 % 1 drp EACH EYE TID 08/16/21 10/25/23 eye drops cholecalciferol (vitamin D3) 25 25 mcg PO DAILY 08/16/21 10/25/23 mcg (1,000 unit) tablet (Vitamin D3) [id number]-bjc-epa-fish 1 tablet PO DAILY 08/16/21 10/25/23 oil 200 mcg-1,000 unit-25 mg tab,chew amlodipine 10 mg tablet 10 mg PO DAILY 10/06/23 10/25/23 estradiol 0.5 mg tablet 0.5 mg PO DAILY 10/06/23 10/25/23 losartan 100 mg tablet 100 mg PO DAILY 10/06/23 10/25/23 metoprolol tartrate 25 mg tablet 25 mg PO DAILY 10/06/23 10/25/23 omeprazole 20 mg capsule,delayed 20 mg PO DAILY 10/06/23 10/25/23 release Allergies Allergy/AdvReac Type Severity Reaction Status Date / Time amlodipine Allergy Severe Dizziness Verified 10/15/23 14:28 lisinopril Allergy Intermediate Cough Verified 10/15/23 14:28 rofecoxib Allergy Mild Other Verified 10/15/23 14:28 Review of Systems Review of Systems: Pertinent positives per HPI. Patient denies any fever, chills, rash, headache, visual changes, dizziness, cough, runny nose, sore throat, shortness of breath, chest pain, palpitations, nausea, vomiting, diarrhea, constipation, abdominal pain. [facility] Past Medical History Medical History (Updated 10/25/23 @ 14:43 by Alden Lund APRN) Anxiety GERD (gastroesophageal reflux disease) Hypertension Surgical History Surgical History (Updated 10/16/23 @ 14:33 by Gloria Tierney NP) History of appendectomy History of hysterectomy History of shoulder surgery bilateral Hx of cataract surgery bilateral Family History Family History Mother Family history non-contributory Social History Social History Social History: Denies use of drugs alcohol or tobacco. Substance use: never Gender identity (if verbalized by the patient): Female Spiritual care concerns: No Comments At the time of my signature, I reviewed and agree with the nursing past medical, surgical, social, and family history. There is no relevant family history pertinent to the patient complaint. Exam Narrative: General: Well-developed, well nourished, in no apparent distress. Head: Normocephalic, atraumatic. Cardio: Regular rate and rhythm, s1 and s2 normal, no murmur appreciated. Resp: Clear to auscultation bilaterally, no rhonchi, rales, wheezing or rubs. Abdomen: Soft, pliable, bowel sounds present in all quadrants, non-tender to palpation, no organomegly, no CVAT tenderness. Course Course Emergency Course: Portions of this record may have been created with voice recognition software. Level of Care: Express Care Visit Vital Signs Vital signs: Vital signs reviewed MDM - Female Genitourinary MDM Narrative Medical decision making narrative: At the time of visit patient is resting comfortably on the exam table. Patient appears to be nontoxic. UA: Urinalysis shows 2+ leukocytes and 1+ blood. We will send urine for culture Plan: We will send uri
[2023-10-25 14:37] VITALS: BP 171/64; PULSE 74; RESP 16; TEMP 36.9; O2SAT 97
== END 2023-10-25 14:53 | disposition home or self-care (01) ==
PROVIDERS: Emergency Provider Nurse Practitioner Family
DX: R30.0 Dysuria (principal); R35.0 Frequency of micturition; R39.15 Urgency of urination; F41.9 Anxiety disorder, unspecified; K21.9 Gastro-esophageal reflux disease without esophagitis; I10 Essential (primary) hypertension
CPT/HCPCS: 81003; 87086; 99213; G0463

== ENCOUNTER 2023-11-07 15:22 | Emergency (ER) | payer MEDICARE, SELFPAY ==
[2023-11-07 15:51] VITALS: BP 156/60; PULSE 69; RESP 20; TEMP 36.7; O2SAT 96
[2023-11-07 15:52] VITALS: BP 156/60; PULSE 69; RESP 20; TEMP 36.7; O2SAT 96
--- NOTE | 2023-11-07 15:53 | ED.SKABFB ---
HPI - Skin/Abscess/Foreign Bdy General Chief complaint: Skin/Abscess/Foreign Body Stated complaint: right leg sore CA removal 06/2023 Time Seen by Provider: 11/07/23 15:54 Source: patient Mode of arrival: ambulatory Limitations: no limitations History of Present Illness HPI narrative: 88 yo F presents with c/o infectd wound to R lower leg. Pt states she had skin cancer removed from leg in june. States wound is not healing well and has had continuous drainage. has followed up with bath mixer multiple times and was told not infected. today reports redness, warmth, swelling surround wound. All systems reviewed and negative except as noted above. Related Data Home Medications Medication Instructions Recorded Confirmed alprazolam 0.5 mg tablet 0.5 mg PO DAILY 08/16/21 11/07/23 carboxymethylcellulose sodium 1 % 1 drp EACH EYE TID 08/16/21 11/07/23 eye drops cholecalciferol (vitamin D3) 25 25 mcg PO DAILY 08/16/21 11/07/23 mcg (1,000 unit) tablet (Vitamin D3) [id number]-[id number]-epa-fish 1 tablet PO DAILY 08/16/21 11/07/23 oil 200 mcg-1,000 unit-25 mg tab,chew amlodipine 10 mg tablet 10 mg PO DAILY 10/06/23 11/07/23 estradiol 0.5 mg tablet 0.5 mg PO DAILY 10/06/23 11/07/23 losartan 100 mg tablet 100 mg PO DAILY 10/06/23 11/07/23 metoprolol tartrate 25 mg tablet 25 mg PO DAILY 10/06/23 11/07/23 omeprazole 20 mg capsule,delayed 20 mg PO DAILY 10/06/23 11/07/23 release Allergies Allergy/AdvReac Type Severity Reaction Status Date / Time amlodipine Allergy Severe Dizziness Verified 11/07/23 15:51 lisinopril Allergy Intermediate Cough Verified 11/07/23 15:51 rofecoxib Allergy Mild Other Verified 11/07/23 15:51 Review of Systems Review of Systems: CONSTITUTIONAL: Denies fever, chills, or sweats. EYES: Denies visual changes, redness, or discharge. ENT: Denies rhinorrhea, congestion, sore throat, or otalgia. CARDIOVASCULAR: Denies chest pain, palpitations, or edema. RESPIRATORY: Denies cough or dyspnea. GASTROINTESTINAL: Denies abdominal pain, nausea, vomiting, or diarrhea. GENITOURINARY: Denies dysuria or hematuria. SKIN: Denies rash or itching. Patient reports infected wound to right lower extremity with surrounding erythema, warmth and tenderness. MUSCULOSKELETAL: Denies back pain, joint pain, or myalgia. NEUROLOGIC: Denies headache, numbness, or weakness. PSYCHIATRIC: Denies anxiety or depression. All other systems reviewed are negative, except as documented in HPI. [facility] Past Medical History Medical History (Updated 11/07/23 @ 16:04 by Klarissa Hollins NP) Anxiety GERD (gastroesophageal reflux disease) Hypertension Surgical History Surgical History (Updated 10/16/23 @ 14:33 by Gloria Tierney NP) History of appendectomy History of hysterectomy History of shoulder surgery bilateral Hx of cataract surgery bilateral Family History Family History Mother Family history non-contributory Social History Social History Social History: Denies use of drugs alcohol or tobacco. Substance use: never Gender identity (if verbalized by the patient): Female Spiritual care concerns: No Comments At time of signature, agree with nursing past medical, surgical, social and family history. There is no relevant family history pertinent to the presenting complaint. Exam Narrative: GENERAL: This is a well-nourished, well-developed patient, in no apparent distress. HEAD: normocephalic, atraumatic. EYES: PERRL. Sclera clear/white. Vision is grossly intact. EARS: External ears normal NOSE: External nose normal NECK: Neck supple, non-tender without lymphadenopathy, masses or thyromegaly. CARDIOVASCULAR: Regular rate and rhythm without murmurs, gallops, or rubs. RESPIRATORY: Clear to auscultation. Breath sounds equal bilaterally. No wheezes, rales, or rhonchi.
== END 2023-11-07 16:15 | disposition home or self-care (01) ==
PROVIDERS: Emergency Provider Nurse Practitioner Family
DX: L03.115 Cellulitis of right lower limb (principal); F41.9 Anxiety disorder, unspecified; K21.9 Gastro-esophageal reflux disease without esophagitis; I10 Essential (primary) hypertension; Z85.828 Personal history of other malignant neoplasm of skin
CPT/HCPCS: 87070; 87075; 87076; 87205; 99213; G0463

== ENCOUNTER 2023-11-10 09:47 | Emergency (ER) | payer MEDICARE, SELFPAY ==
--- NOTE | 2023-11-10 09:49 | ED.SKABFB ---
HPI - Skin/Abscess/Foreign Bdy General Chief complaint: Skin/Abscess/Foreign Body Stated complaint: Allergic Reaction Time Seen by Provider: 11/10/23 09:47 Source: patient Mode of arrival: ambulatory Limitations: no limitations History of Present Illness HPI narrative: Isela is an 88-year-old female patient presenting to the clinic today with complaints of possible allergic reaction to cephalexin. She reports she started taking cephalexin on November 06 for cellulitis of the right lower extremity. Is concerned that she may be having allergic reaction as she has burning in the vaginal area. Reports the burning sensation is inside the vagina. 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 Is scheduled for surgery for the fistula on November 22. Denies any fever, chills, or body aches. Denies any itching in the vaginal area. Is adamant about getting her antibiotics switched as she believes she is having allergic reaction. Related Data Home Medications Medication Instructions Recorded Confirmed alprazolam 0.5 mg tablet 0.5 mg PO DAILY 08/16/21 11/10/23 carboxymethylcellulose sodium 1 % 1 drp EACH EYE TID 08/16/21 11/10/23 eye drops cholecalciferol (vitamin D3) 25 25 mcg PO DAILY 08/16/21 11/10/23 mcg (1,000 unit) tablet (Vitamin D3) [id number]-epa-[id number] 1 tablet PO DAILY 08/16/21 11/10/23 oil 200 mcg-1,000 unit-25 mg tab,chew amlodipine 10 mg tablet 10 mg PO DAILY 10/06/23 11/10/23 estradiol 0.5 mg tablet 0.5 mg PO DAILY 10/06/23 11/10/23 losartan 100 mg tablet 100 mg PO DAILY 10/06/23 11/10/23 metoprolol tartrate 25 mg tablet 25 mg PO DAILY 10/06/23 11/10/23 omeprazole 20 mg capsule,delayed 20 mg PO DAILY 10/06/23 11/10/23 release Allergies Allergy/AdvReac Type Severity Reaction Status Date / Time amlodipine Allergy Severe Dizziness Verified 11/10/23 09:52 lisinopril Allergy Intermediate Cough Verified 11/10/23 09:52 rofecoxib Allergy Mild Other Verified 11/10/23 09:52 Review of Systems Review of Systems: Pertinent positives per HPI. Patient denies any fever, chills, rash, headache, visual changes, dizziness, cough, runny nose, sore throat, shortness of breath, chest pain, palpitations, nausea, vomiting, diarrhea, constipation, abdominal pain, or any urinary issues. [facility] Past Medical History Medical History Anxiety GERD (gastroesophageal reflux disease) Hypertension Surgical History Surgical History History of appendectomy History of hysterectomy History of shoulder surgery bilateral Hx of cataract surgery bilateral Family History Family History Mother Family history non-contributory Social History Social History Social History: Denies use of drugs alcohol or tobacco. Substance use: never Gender identity (if verbalized by the patient): Female Spiritual care concerns: No Comments At the time of my signature, I reviewed and agree with the nursing past medical, surgical, social, and family history. There is no relevant family history pertinent to the patient complaint. Exam Narrative: General: Well-developed, well nourished, in no apparent distress Head: Normocephalic, atraumatic. Cardio: Regular rate and rhythm, s1 and s2 normal, no murmur appreciated. Resp: Clear to auscultation bilaterally, no rhonchi, rales, wheezing or rubs. Abdomen: Soft, pliable, bowel sounds present in all quadrants, non-tender to palpation, no CVAT tenderness. : Pelvic exam performed with (Juana RODGERS) at bedside. Verbal consent obtained from patient. Normal external female genitalia without lesions or masses, Urinary meatus: patent without discharge, Vagina: No lesions, masses, or discharge. Integumentary: [place], warm, and dry, intact without lesion, open woun
[2023-11-10 09:56] VITALS: BP 135/60; PULSE 60; RESP 16; TEMP 36.9; O2SAT 98
== END 2023-11-10 11:22 | disposition home or self-care (01) ==
PROVIDERS: Emergency Provider Nurse Practitioner Family
DX: R10.2 Pelvic and perineal pain (principal); L08.9 Local infection of the skin and subcutaneous tissue, unspecified; K21.9 Gastro-esophageal reflux disease without esophagitis; I10 Essential (primary) hypertension
CPT/HCPCS: 81003; 87070; 87086; 99213; G0463

== ENCOUNTER 2023-11-11 11:23 | Emergency (ER) | payer MEDICARE, SELFPAY ==
[2023-11-11 11:26] VITALS: BP 169/49; PULSE 69; RESP 16; TEMP 36.6; O2SAT 97
[2023-11-11 11:59] VITALS: BP 125/58; PULSE 62; RESP 16; O2SAT 96
--- NOTE | 2023-11-11 13:30 | ED.GENADULT ---
HPI - General Adult General Chief complaint: Extremity Problem,Nontraumatic Stated complaint: right leg cellulitis Time Seen by Provider: 11/11/23 12:03 History of Present Illness HPI narrative: Patient is an 88-year-old female who presents ER with right sotomayor infection. She is currently on doxycycline and is giving her an upset stomach. She is on doxycycline hyclate. Previous that she had been on cephalexin 4 times a day for approximately 3 days but this gave her a vaginal yeast infection. She was treated with fluconazole. She reports she eats a banana in the morning but then still has an upset stomach during the day. No vomiting. No fevers or chills or sweats. Cellulitis is improving. Related Data Home Medications Medication Instructions Recorded Confirmed alprazolam 0.5 mg tablet 0.5 mg PO DAILY 08/16/21 11/10/23 carboxymethylcellulose sodium 1 % 1 drp EACH EYE TID 08/16/21 11/10/23 eye drops cholecalciferol (vitamin D3) 25 25 mcg PO DAILY 08/16/21 11/10/23 mcg (1,000 unit) tablet (Vitamin D3) [id number]-jus-epa-fish 1 tablet PO DAILY 08/16/21 11/10/23 oil 200 mcg-1,000 unit-25 mg tab,chew amlodipine 10 mg tablet 10 mg PO DAILY 10/06/23 11/10/23 estradiol 0.5 mg tablet 0.5 mg PO DAILY 10/06/23 11/10/23 losartan 100 mg tablet 100 mg PO DAILY 10/06/23 11/10/23 metoprolol tartrate 25 mg tablet 25 mg PO DAILY 10/06/23 11/10/23 omeprazole 20 mg capsule,delayed 20 mg PO DAILY 10/06/23 11/10/23 release Allergies Allergy/AdvReac Type Severity Reaction Status Date / Time lisinopril Allergy Intermediate Cough Verified 11/11/23 11:59 rofecoxib Allergy Mild Other Verified 11/11/23 11:59 Review of Systems Constitutional: Constitutional: Reports no additional constitutional complaints Cardiovascular: Cardiovascular: Reports no additional cardiovascular complaints Respiratory: Respiratory: Reports no additional respiratory complaints Gastrointestinal: Gastrointestinal: Reports abdominal pain, Denies diarrhea, Denies nausea and Denies vomiting Genitourinary: Genitourinary: Reports no additional female genitourinary complaints Musculoskeletal: Musculoskeletal: Reports no additional musculoskeletal complaints Integumentary/Breasts: Skin/Breast: Reports erythema, Denies rash and Reports skin ulcer PMFSH Past Medical History Medical History Anxiety GERD (gastroesophageal reflux disease) Hypertension Surgical History Surgical History History of appendectomy History of hysterectomy History of shoulder surgery bilateral Hx of cataract surgery bilateral Family History Family History Mother Family history non-contributory Social History Social History Social History: Denies use of drugs alcohol or tobacco. Substance use: never Gender identity (if verbalized by the patient): Female Spiritual care concerns: No Exam Narrative: GENERAL: Well-appearing, well-nourished, and in no acute distress. HEAD: Normocephalic, atraumatic. ENT: Mucous membranes moist. CHEST: Clear to auscultation. No respiratory distress. HEART: Regular rate and rhythm. Normal peripheral pulses. EXTREMITIES: Normal range of motion. No edema. X SKIN: Warm, dry. Slight cellulitis right anterior sotomayor around a ulceration from her previous biopsy. No purulent drainage. NEURO: Alert and oriented x3. PSYCH: Normal mood and affect. Course Course Emergency Course: Will change antibiotic to doxycycline monohydrate. Educated that she can have a glass of milk and a small meal prior to taking the medication. Recommend more than a banana. Additionally encourage hydration. I will only give her 6 more days of antibiotic therapy as she has already been on 4 days of treatme
[2023-11-11 13:53] VITALS: BP 128/60; PULSE 60; RESP 14; TEMP 36.6; O2SAT 96
== END 2023-11-11 13:55 | disposition home or self-care (01) ==
PROVIDERS: Emergency Provider Emergency Medicine; Referring Provider Emergency Medicine
DX: L03.115 Cellulitis of right lower limb (principal); B37.31 Acute candidiasis of vulva and vagina; I10 Essential (primary) hypertension; K21.9 Gastro-esophageal reflux disease without esophagitis; F41.9 Anxiety disorder, unspecified; Z90.710 Acquired absence of both cervix and uterus; Z98.42 Cataract extraction status, left eye; Z98.41 Cataract extraction status, right eye
CPT/HCPCS: 99283

== ENCOUNTER 2024-01-05 14:35 | Emergency (ER) | payer MEDICARE, SELFPAY ==
[2024-01-05 14:50] VITALS: BP 142/52; PULSE 58; RESP 14; TEMP 36.3; O2SAT 99
--- NOTE | 2024-01-05 15:24 | ED.EXTPRO ---
HPI - Extremity Problem General Chief complaint: Extremity Problem,Nontraumatic Stated complaint: feet are swollen Time Seen by Provider: 01/05/24 15:25 Source: patient Mode of arrival: ambulatory Limitations: no limitations History of Present Illness HPI Narrative: 88-year-old female presents with complaint lower leg swelling for the past 4-5 days. Taken 20 mg Lasix daily with no change in symptoms. Denies shortness of breath. Reports she had similar lower leg swelling 1 year ago, this is why she has prescription for Lasix. Missed appointment with her primary care physician yesterday because her son's car broke down. Does not have another appointment until February 28. All systems reviewed and negative except as noted above. Related Data Home Medications Medication Instructions Recorded Confirmed alprazolam 0.5 mg tablet 0.5 mg PO DAILY 08/16/21 01/05/24 carboxymethylcellulose sodium 1 % 1 drp EACH EYE TID 08/16/21 01/05/24 eye drops cholecalciferol (vitamin D3) 25 25 mcg PO DAILY 08/16/21 01/05/24 mcg (1,000 unit) tablet (Vitamin D3) [id number]-jto-epa-fish 1 tablet PO DAILY 08/16/21 01/05/24 oil 200 mcg-1,000 unit-25 mg tab,chew amlodipine 10 mg tablet 10 mg PO DAILY 10/06/23 01/05/24 estradiol 0.5 mg tablet 0.5 mg PO DAILY 10/06/23 01/05/24 losartan 100 mg tablet 100 mg PO DAILY 10/06/23 01/05/24 metoprolol tartrate 25 mg tablet 25 mg PO DAILY 10/06/23 01/05/24 omeprazole 20 mg capsule,delayed 20 mg PO DAILY 10/06/23 01/05/24 release hydrochlorothiazide 25 mg tablet 12.5 mg PO DAILY 01/05/24 01/05/24 Allergies Allergy/AdvReac Type Severity Reaction Status Date / Time lisinopril Allergy Intermediate Cough Verified 01/05/24 15:26 rofecoxib Allergy Mild Other Verified 01/05/24 15:26 Review of Systems Review of Systems: CONSTITUTIONAL: Denies fever, chills, or sweats. EYES: Denies visual changes, redness, or discharge. ENT: Denies rhinorrhea, congestion, sore throat, or otalgia. CARDIOVASCULAR: Denies chest pain, palpitations . Reports lower leg edema. RESPIRATORY: Denies cough or dyspnea. GASTROINTESTINAL: Denies abdominal pain, nausea, vomiting, or diarrhea. GENITOURINARY: Denies dysuria or hematuria. SKIN: Denies rash or itching. MUSCULOSKELETAL: Denies back pain, joint pain, or myalgia. NEUROLOGIC: Denies headache, numbness, or weakness. PSYCHIATRIC: Denies anxiety or depression. All other systems reviewed are negative, except as documented in HPI. [facility] Past Medical History Medical History Anxiety GERD (gastroesophageal reflux disease) Hypertension Surgical History Surgical History History of appendectomy History of hysterectomy History of shoulder surgery bilateral Hx of cataract surgery bilateral Family History Family History Mother Family history non-contributory Social History Social History Social History: Denies use of drugs alcohol or tobacco. Substance use: never Gender identity (if verbalized by the patient): Female Spiritual care concerns: No Comments At time of signature, agree with nursing past medical, surgical, social and family history. There is no relevant family history pertinent to the presenting complaint. Exam Narrative: GENERAL: This is a well-nourished, well-developed patient, in no apparent distress. HEAD: normocephalic, atraumatic. EYES: PERRL. Sclera clear/white. Vision is grossly intact. EARS: External ears normal NOSE: External nose normal NECK: Neck supple, non-tender without lymphadenopathy, masses or thyromegaly. CARDIOVASCULAR: Regular rate and rhythm without murmurs, gallops, or rubs. RESPIRATORY: Clear to auscultation. Breath sounds equal bilaterally. No wheezes, rales, or
== END 2024-01-05 16:02 | disposition short-term general hospital (02) ==
PROVIDERS: Emergency Provider Nurse Practitioner Family
DX: R60.0 Localized edema (principal); K21.9 Gastro-esophageal reflux disease without esophagitis; I10 Essential (primary) hypertension; F41.9 Anxiety disorder, unspecified
CPT/HCPCS: 99212; G0463

== ENCOUNTER 2024-01-05 16:28 | Emergency (ER) | payer MEDICARE, SELFPAY ==
--- NOTE | ~2024-01-05 | XR_ITS ---
XR chest 2V Ordering provider: Tonia Akhtar PA-C History: 88 years Female with . ble swelling, r/o pulm edema . Comparison: August 15, 2015 FINDINGS: MEDIASTINUM: The cardiac silhouette is slightly enlarged. LUNGS: No infiltrates, effusions or pneumothorax. Underlying fibrotic changes. Vague opacity in the r ight midzone. Follow-up advised. OTHER: Healing fractures in the right hemithorax. No free air under the diaphragm. IMPRESSION: No acute cardiopulmonary pathology. Reviewed, dictated and finalized at location A.
--- NOTE | 2024-01-05 17:04 | ECG_ITS ---
Test Date: 2024-01-05 17:12:28 Measurements Intervals [place] Rate: 61 P: 63 HI: 219 QRS: -33 QRSD: 105 T: 51 QT: 392 QTc: 396 Interpretive Statements SINUS RHYTHM WITH FIRST DEGREE AV BLOCK LEFT AXIS DEVIATION LOW QRS VOLTAGE IN PRECORDIAL LEADS ANTEROSEPTAL INFARCT, AGE INDETERMINATE BASELINE ARTIFACT- I, II, III, AVR, AVL, AVF, V2, V4-V6 ABNORMAL ECG No previous ECG available for comparison Electronically Signed On 01-06-2024 06:20:08 CDT by Bud Lambert D.O.
[2024-01-05 17:12] VITALS: BP 156/66; PULSE 55; RESP 18; TEMP 36.4; O2SAT 97
--- NOTE | 2024-01-05 17:37 | ED.EXTPRO ---
HPI - Extremity Problem General Chief complaint: Extremity Problem,Nontraumatic Stated complaint: sent from for bilateral leg swelling Time Seen by Provider: 01/05/24 17:02 Source: patient Mode of arrival: ambulatory Limitations: no limitations History of Present Illness HPI Narrative: Patient is an 88-year-old female who presents the ED with report of lower extremity swelling. Patient reports having increased swelling over the last 1 week, but states it has continued to worsen today. She had a leftover prescription for Lasix 20 mg and has been taking this over the last 5 days, but denies improvement of the swelling. Denies known hx of CHF. Denies pain in her lower extremities. Denies shortness of breath, dyspnea on exertion, orthopnea. Denies chest pain, fevers, cough or cold symptoms. Sent from urgent care here for further evaluation. Related Data Home Medications Medication Instructions Recorded Confirmed alprazolam 0.5 mg tablet 0.5 mg PO DAILY 08/16/21 01/05/24 carboxymethylcellulose sodium 1 % 1 drp EACH EYE TID 08/16/21 01/05/24 eye drops cholecalciferol (vitamin D3) 25 25 mcg PO DAILY 08/16/21 01/05/24 mcg (1,000 unit) tablet (Vitamin D3) [id number]-epa-fish 1 tablet PO DAILY 08/16/21 01/05/24 oil 200 mcg-1,000 unit-25 mg tab,chew amlodipine 10 mg tablet 10 mg PO DAILY 10/06/23 01/05/24 estradiol 0.5 mg tablet 0.5 mg PO DAILY 10/06/23 01/05/24 losartan 100 mg tablet 100 mg PO DAILY 10/06/23 01/05/24 metoprolol tartrate 25 mg tablet 25 mg PO DAILY 10/06/23 01/05/24 omeprazole 20 mg capsule,delayed 20 mg PO DAILY 10/06/23 01/05/24 release hydrochlorothiazide 25 mg tablet 12.5 mg PO DAILY 01/05/24 01/05/24 Allergies Allergy/AdvReac Type Severity Reaction Status Date / Time lisinopril Allergy Intermediate Cough Verified 01/05/24 16:28 rofecoxib Allergy Mild Other Verified 01/05/24 16:28 Review of Systems Review of Systems: CONSTITUTIONAL: Denies fever, chills, or sweats. ENT: Denies rhinorrhea, congestion, sore throat. CARDIOVASCULAR: See HPI. RESPIRATORY: Denies cough or dyspnea. MUSCULOSKELETAL: Denies back pain, extremity pain, myalgia. All systems reviewed & are unremarkable except as noted in HPI and below PMFSH Past Medical History Medical History Anxiety GERD (gastroesophageal reflux disease) Hypertension Surgical History Surgical History History of appendectomy History of hysterectomy History of shoulder surgery bilateral Hx of cataract surgery bilateral Family History Family History Mother Family history non-contributory Social History Social History Social History: Denies use of drugs alcohol or tobacco. Substance use: never Gender identity (if verbalized by the patient): Female Spiritual care concerns: No Exam Narrative: GENERAL: Elderly, well-nourished, non-toxic, in no acute distress. HEAD: Normocephalic, atraumatic. RESPIRATORY: Airway patent, respirations nonlabored. Clear to auscultation bilaterally, no rales, rhonchi, wheezing. No significant focal lung sounds. CARDIOVASCULAR: Regular rate and rhythm without murmurs, rubs, or gallops. Pedal pulses are intact. MUSCULOSKELETAL: Moves all extremities. No gross deformities. 2+ pitting edema in lower extremities bilaterally, up to knees. No significant tenderness throughout lower extremities. SKIN: Warm, dry, normal color. NEURO: A&O X3. Speech clear. Cranial nerves II-XII grossly intact. Steady gait. No ataxic movements. PSYCHIATRIC: Appropriate mood and affect. Normal interaction. Course Vital Signs Vital signs: Vital Signs Temperature 97.6 F 01/05/24 17:12 Pulse Rate 55 L 01/05/24 17:12 Respiratory Rate 18 07
[2024-01-05 17:46] LABS: Basophils Percent Auto 0.5 % (0.2-1.2); Eosinophils Absolute Auto 0.2 K/mm3 (0-0.3); Eosinophils Percent Auto 2.8 % (0-4.4); Hematocrit 36.4 % (37.0-47.0); Hemoglobin 12.2 g/dL (12.0-15.0); Immature Granulocyte Absolute 0.03 K/mm3 (0.00-0.031); Immature Granulocyte Percent A 0.5 % (0-0.5); Lymphocytes Absolute Auto 1.21 K/mm3 (0.9-3.2); Lymphocytes Percent Auto 19.7 % (18.3-44.2); Mean Corpuscular HGB Conc 33.5 g/dl (32-36); Mean Corpuscular Hemoglobin 30.1 pg (26-34); Mean Corpuscular Volume 89.9 fl (80-100); Mean Platelet Volume 10.6 fl (7.4-10.4); Monocytes Absolute Auto 0.8 K/mm3 (0.1-0.6); Monocytes Percent Auto 13.2 % (2.6-8.5); Neutrophils Absolute Auto 3.9 K/mm3 (1.3-6.7); Neutrophils Percent Auto 63.3 % (45.5-73.1); Platelet Count Result 242 k/mm3 (150-375); Red Blood Count 4.05 M/mm3 (4.2-5.4); Red Cell Distribution Width 13.7 % (11.5-14.5); White Blood Count 6.2 K/mm3 (4.5-10.0)
[2024-01-05 17:55] LABS: Alanine Aminotransferase 17 U/L (6-35); Albumin Level 4.1 g/dL (3.5-5.1); Alkaline Phosphatase 92 U/L (38-126); Anion Gap 3 mmol/L (4-12); Aspartate Amino Transferase 25 U/L (14-36); Bilirubin,Total 0.4 mg/dL (0.2-1.3); Blood Urea Nitrogen 16 mg/dL (7-17); Calcium 10.8 mg/dL (8.4-10.2); Carbon Dioxide 32 mmol/L (22-30); Chloride 103 mmol/L (98-107); Estimated CRCL calculation 48 ml/min; Estimated Glomerular Filt Rate > 60; Glucose 107 mg/dL (65-110); Potassium 4.8 mmol/L (3.4-5.0); Sodium 138 mmol/L (137-145)
[2024-01-05 17:59] LABS: Partial Thromboplastin Time 28.6 Seconds (22.3-36.8); Prothrombin Time 13.4 Seconds (11.1-14.7)
[2024-01-05 18:04] LABS: NT Pro B Type Natriuretic Pept 269 pg/mL (19.9-100)
[2024-01-05 18:22] VITALS: BP 137/61; PULSE 59; RESP 16; O2SAT 97
[2024-01-05 18:23] LABS: D Dimer 1.12 ug/mL (<0.48)
[2024-01-05 18:31] LABS: Troponin I < 0.012 ng/mL (0.000-0.034)
[2024-01-05] MEDS: FUROSEMIDE 40 MG TABLET PO (20:24)
[2024-01-05] MEDS: ENOXAPARIN 80 MG/0.8 ML SYRINGE SUB-Q (20:25)
== END 2024-01-06 | disposition home or self-care (01) ==
PROVIDERS: Emergency Provider Physician Assistant
DX: R60.0 Localized edema (principal); R79.1 Abnormal coagulation profile; I10 Essential (primary) hypertension; K21.9 Gastro-esophageal reflux disease without esophagitis; F41.9 Anxiety disorder, unspecified; Z90.710 Acquired absence of both cervix and uterus; Z98.42 Cataract extraction status, left eye; Z98.41 Cataract extraction status, right eye; Z79.899 Other long term (current) drug therapy; I44.0 Atrioventricular block, first degree; R94.31 Abnormal electrocardiogram [ECG] [EKG]
CPT/HCPCS: 36415; 71046; 80053; 83880; 84484; 85025; 85380; 85610; 85730; 93005; 96372; 99284; A9270; J1650

== ENCOUNTER 2024-01-06 07:33 | Outpatient (CLI) | payer MEDICARE, SELFPAY ==
--- NOTE | ~2024-01-06 | US_ITS ---
EXAMINATION: US venous doppler [facility] DATE: 01/06/2024 09:04 INDICATION: Lower limb localized edema. TECHNIQUE: Grayscale ultrasound images without and with compression and Doppler ultrasound images of the bilateral lower extremity veins were obtained. COMPARISON: None. FINDINGS: The visualized portions of right common femoral vein, profunda (deep) femoral vein, femoral vein, pop liteal vein, peroneal veins, posterior tibial veins, and greater saphenous vein outflow are patent. The visualized portions of left common femoral vein, profunda femoral vein, femoral vein, popliteal v ein, peroneal veins, posterior tibial veins, and greater saphenous vein outflow are patent. IMPRESSION: 1. No deep venous thrombosis. Reviewed, dictated and finalized at location A.
== END 2024-01-06 07:34 | disposition home or self-care (01) ==
PROVIDERS: Visit Provider Physician Assistant
DX: R60.0 Localized edema (principal); R79.89 Other specified abnormal findings of blood chemistry
CPT/HCPCS: 93970

== ENCOUNTER 2024-05-02 11:44 | Emergency (ER) | payer MEDICARE, SELFPAY ==
--- NOTE | 2024-05-02 11:54 | ED.FEMALEGU ---
HPI - Female Genitourinary General Chief complaint: Urogenital-Female Stated complaint: UTI Time Seen by Provider: 05/02/24 12:12 Source: patient, RN notes reviewed and old records reviewed Mode of arrival: ambulatory Limitations: no limitations History of Present Illness HPI Narrative: 88-year-old female presents to the [facility] with concerns for a UTI Patient states that yesterday she was sitting in her chair when she felt a burning sensation. States it has been going on since yesterday. States that she normally rinses herself with cool water and applies Crisco oil Patient denies any fevers. Denies abdominal pain. Denies any rashes. Related Data Home Medications Medication Instructions Recorded Confirmed alprazolam 0.5 mg tablet 0.5 mg PO DAILY 08/16/21 01/05/24 carboxymethylcellulose sodium 1 % 1 drp EACH EYE TID 08/16/21 01/05/24 eye drops cholecalciferol (vitamin D3) 25 25 mcg PO DAILY 08/16/21 01/05/24 mcg (1,000 unit) tablet (Vitamin D3) [id number] 1 tablet PO DAILY 08/16/21 01/05/24 oil 200 mcg-1,000 unit-25 mg tab,chew amlodipine 10 mg tablet 10 mg PO DAILY 10/06/23 01/05/24 estradiol 0.5 mg tablet 0.5 mg PO DAILY 10/06/23 01/05/24 losartan 100 mg tablet 100 mg PO DAILY 10/06/23 01/05/24 metoprolol tartrate 25 mg tablet 25 mg PO DAILY 10/06/23 01/05/24 omeprazole 20 mg capsule,delayed 20 mg PO DAILY 10/06/23 01/05/24 release hydrochlorothiazide 25 mg tablet 12.5 mg PO DAILY 01/05/24 01/05/24 Allergies Allergy/AdvReac Type Severity Reaction Status Date / Time lisinopril Allergy Intermediate Cough Verified 05/02/24 11:47 rofecoxib Allergy Mild Other Verified 05/02/24 11:47 Review of Systems Review of Systems: All systems reviewed & are unremarkable except as noted in HPI and below Constitutional: Constitutional: Reports no additional constitutional complaints ENT: Reports system reviewed and no additional complaints, except as documented Cardiovascular: Cardiovascular: Reports no additional cardiovascular complaints, Denies chest pain and Denies dyspnea Respiratory: Respiratory: Reports no additional respiratory complaints, Denies chest congestion, Denies cough and Denies dyspnea Gastrointestinal: Gastrointestinal: Reports no additional gastrointestinal complaints, Denies abdominal pain, Denies nausea and Denies vomiting Genitourinary: Genitourinary: Reports as per HPI Musculoskeletal: Musculoskeletal: Reports no additional musculoskeletal complaints Integumentary/Breasts: Skin/Breast: Reports system reviewed and no additional complaints, except as docu PMFSH Past Medical History Medical History Anxiety GERD (gastroesophageal reflux disease) Hypertension Surgical History Surgical History History of appendectomy History of hysterectomy History of shoulder surgery bilateral Hx of cataract surgery bilateral Family History Family History Mother Family history non-contributory Social History Social History Social History: Denies use of drugs alcohol or tobacco. Substance use: never Gender identity (if verbalized by the patient): Female Spiritual care concerns: No Comments At the time of my signature, I reviewed and agree with the nursing past medical, surgical, social, and family history. There is no relevant family history pertinent to the patient complaint. Exam Const: General: cooperative, healthy appearing, comfortable, no acute distress, well developed, alert and well nourished Nutritional Appearance: well nourished Orientation/consciousness: patient oriented x3 Limitations: no limitations HENMT: Head: normal to inspection Ears: hearing grossly normal bilaterally and external ears normal Face/Nose/Sinus: Normal external nose present, normal facial exam and face symmetric Face and sinus: normal facial exam and face symmetric Eyes: General: appearance normal, both eyes and all related structures Alignment and Position: alignment normal Periorbital: periorbital findings normal Neck: Neck: normal visual inspection, full ROM, no lymphadenopathy and no meningeal signs Chest: Chest palpation & inspection: normal inspection of the chest Resp: Effort & Inspection: normal respiratory effort and able to speak in complete sentences Cardio: Rate: regular rate GI: GI Palp: No abdominal tenderness : General: Yes no CVA tenderness Skin: General skin exam: normal color and no rashes or lesions noted Lesions: no lesions Rashes: no rashes Wounds: no wounds Neuro: General: patient oriented x3, gait normal, tone normal, moves all extremities and no meningeal signs Cognition (Neuro): normal cognition Speech: normal speech Gait exam (Neuro): Normal gait present Extrem: General: normal to inspection, full ROM, capillary refill normal and normal gait Psych: Appearance: grossly normal and well kempt Mental Status: mental status grossly normal Speech and movement: Normal speech and movement present and Clear speech present Affect: normal affect Attitude: cooperative Course Course Level of Care: Express Care Visit Vital Signs Vital signs: Vital Signs Temperature 98.1 F 05/02/24 11:58 Pulse Rate 60 05/02/24 11:58 Respiratory Rate 20 05/02/24 11:58 Blood Pressure 135/51 L 05/02/24 11:58 Pulse Oximetry 96 05/02/24 11:58 Oxygen Delivery Room Air 05/02/24 11:58 Temperature 98.1 F 05/02/24 11:58 Pulse Rate 60 05/02/24 11:58 Respiratory Rate 20 05/02/24 11:58 Blood Pressure 135/51 L 05/02/24 11:58 Pulse Oximetry 96 05/02/24 11:58 Oxygen Delivery Room Air 05/02/24 11:58 Reviewed MDM - Female Genitourinary MDM Narrative Medical decision making narrative: Patient presents with irritation to the vaginal area. Symptoms started yesterday Patient sitting comfortably in exam room. Nontoxic, vitals stable Urine dip showed no signs of a urinary tract infection, will send for culture due to patient's history and age Patient appropriate for outpatient treatment and follow-up Discharge instructions reviewed with patient, as well as provided in writing per nursing staff. The instructions also include specific and strict return/GO TO THE ER as well as f/u information. All questions have been answered, and the patient deny any further questions with discharge and discharge plan. Some parts of this dictation were generated by voice recognition software and may contain typographical and/or grammatical inaccuracies. Differential Diagnosis Differential diagnosis: Likely urinary tract infection and other Lab Data Labs: Lab Results 05/02/24 Range/Units 12:10 POC Urine Color Yellow POC Urine Clarity Cloudy POC Urine pH 7.0 POC Ur Specif [place] 1.010 POC Urine Protein Negative (Negative) POC Ur Glucose (UA) Negative (Negative) POC Urine Ketones Negative (Negative) POC Urine Blood Trace (Negative) POC Urine Nitrite Negative (Negative) POC Urine Bilirubin Negative (Negative) POC Urine Urobilinogen 0.2 POC U Leukocyte Esteras Negative (Negative) Reviewed Critical Care Time Critical Care Time Critical Care Time: No Discharge Plan Discharge Clinical Impression: Dysuria Patient Disposition: Home, Self-Care Condition: Stable Instructions: Antibiotic Form, Dysuria (ED) Additional Instructions: Today your urine did not show signs of a UTI. We will send to our lab for confirmation and further testing If it does come back with bacteria we will notify you in 3-4 days. Follow-up with your primary care nurse practitioner Follow-up with your primary care provider Patient Language: [place] Prescriptions: No Action amlodipine 10 mg tablet 10 mg PO DAILY omeprazole 20 mg capsule,delayed release(DR/EC) 20 mg PO DAILY estradiol 0.5 mg tablet 0.5 mg PO DAILY losartan 100 mg tablet 100 mg PO DAILY metoprolol tartrate 25 mg tablet 25 mg PO DAILY alprazolam 0.5 mg tablet 0.5 mg PO DAILY carboxymethylcellulose sodium 1 % Drops 1 drp EACH EYE TID cholecalciferol (vitamin D3) [Vitamin D3] 25 mcg (1,000 unit) Tablet 25 mcg PO DAILY Adult Multi plus Meridian-3 200 mcg-1,000 unit-25 mg Tablet,Chewable 1 tablet PO DAILY hydrochlorothiazide 25 mg tablet 12.5 mg PO DAILY fluconazole 150 mg tablet 150 mg PO ONCE Qty: 1 0RF Rx Instructions: as a single dose furosemide [Lasix] 40 mg tablet 40 mg PO DAILY Qty: 3 0RF Follow-up/Referrals: Jocelyn Keita [Other] - 3 Days ([facility] follow-up) Time of Disposition: 12:27
[2024-05-02 11:58] VITALS: BP 135/51; PULSE 60; RESP 20; TEMP 36.7; O2SAT 96
[2024-05-02 12:13] LABS: EDUAAPPEAR Cloudy; EDUABILI Negative (Negative); EDUABLOOD Trace (Negative); EDUACOLOR1 Yellow; EDUAGLUCOSE Negative (Negative); EDUAKETONE Negative (Negative); EDUALEUKO Negative (Negative); EDUANITRATE Negative (Negative); EDUAPROTEIN Negative (Negative); EDUAUROBILI 0.2
== END 2024-05-02 12:31 | disposition home or self-care (01) ==
PROVIDERS: Emergency Provider Nurse Practitioner
DX: R30.0 Dysuria (principal); I10 Essential (primary) hypertension; K21.9 Gastro-esophageal reflux disease without esophagitis; F41.9 Anxiety disorder, unspecified
CPT/HCPCS: 81003; 87086; 99213; G0463